=== PATIENT | male | born 1945 | race Caucasian/White ===

== ENCOUNTER 2018-03-25 06:08 | Day surgery (SDC) | payer MEDICARE, OTHER ==
[~2018-03-25] VITALS: Ht 172.7 cm; Wt 116.1 kg
[~2018-03-25 06:08] MED LIST: ACET500 PO; ALLO100 PO; ALPR.25 PO; AMIO200; AMIT50 PO; AMIT75; AMIT75 PO; AMLO10 PO; AMLO5 PO; ASPI325EC PO; ATEN25; ATEN25 PO; ATEN50; ATEN50 PO; ATOR80 PO; Aspir 8181 MG PO; BACL20 PO; CIPR500 PO; COQ1050 MG PO; CYCL10 PO; DOCU100 PO; Diovan320 MG PO; FENT75TP TOP; FURO40; GLIP2.5ER; GLIP2.5ER PO; GLIP5 PO; HYDACE10B PO; HYDACE5 PO; HYDCHL12.5; HYDR1TAB94 PO; IBUP400 PO; Isosorbide Mono60 MG PO; LAVAP17G PO; LEVFLO500 PO; MAGOXI400 PO; METF500C PO; METO10 PO; METR500 PO; Micro-K10 MEQ; NITR.6SL SL; OMEP20ER PO; OXYACE5T PO; OXYACE7.5T PO; PANT40 PO; PERCOCET 10/325 MG; PROM25 PO; RXSULTRIDS; SIMV40; SIMV80 PO; SULTRIDS PO; TRAM50 PO; TRIHYD5075; TRIHYD5075 PO; TURMERIC500 M2 PO; WARF1 PO; Zithromax250 MG PO; [UNRECOGNIZED DRUG - OTHER] PO
== END 2018-03-25 23:37 | disposition home or self-care (01) ==
LOC: ORSCMMR 06:08 → ORD 07:30 → ORSCMMR 23:37
PROVIDERS: Surgery
PROC: 0DJD8ZZ Inspection of Lower Intestinal Tract, Via Natural or Artificial Opening Endoscopic (ICD-10-PCS; principal; 2018-03-25 07:30)
DX: Z12.11 Encounter for screening for malignant neoplasm of colon (principal); Z86.010 Personal history of colon polyps; I10 Essential (primary) hypertension; E11.9 Type 2 diabetes mellitus without complications; E66.9 Obesity, unspecified; Z68.31 Body mass index [BMI] 31.0-31.9, adult; Z79.82 Long term (current) use of aspirin; Z79.84 Long term (current) use of oral hypoglycemic drugs; Z79.899 Other long term (current) drug therapy
CPT/HCPCS: 82947; J7120

== ENCOUNTER → 2018-10-03 | Outpatient (CLI) | payer MEDICARE, OTHER ==
[2018-10-03 11:59] LABS: BASOPHILS ABSOLUTE AUTO 0.03 K/mm3 (0.00-0.23); BASOPHILS PERCENT AUTO 0 % (0-2); EOSINOPHILS ABSOLUTE AUTO 0.19 K/mm3 (0.00-0.68); EOSINOPHILS PERCENT AUTO 2 % (0-6); Hematocrit 41.2 % (37.0-53.0); Hemoglobin 14.1 g/dL (13.5-17.5); IMMATURE GRAN ABSOLUTE AUTO 0.02 K/mm3 (0.00-0.10); IMMATURE GRAN PERCENT AUTO 0 % (0-1); LYMPHOCYTES ABSOLUTE AUTO 1.34 K/mm3 (0.84-5.20); LYMPHOCYTES PERCENT AUTO 14 % (21-46); MONOCYTES ABSOLUTE AUTO 0.66 K/mm3 (0.16-1.47); MONOCYTES PERCENT AUTO 7 % (4-13); Mean Corpuscular HGB 29.2 pg (26.0-34.0); Mean Corpuscular HGB Conc 34.2 g/dL (31.5-36.5); Mean Corpuscular Volume 85 fL (80-100); Mean Platelet Volume 9.7 fL (9.1-12.4); NEUTROPHILS ABSOLUTE AUTO 7.28 K/mm3 (1.96-9.15); NEUTROPHILS PERCENT AUTO 77 % (41-73); Platelet Count 165 K/mm3 (150-400); RDW Coefficient Variation 13.1 % (11.7-14.2); RDW Standard Deviation 39.8 fL (35.1-46.3); Red Blood Cell Count 4.83 M/mm3 (4.30-5.90); White Blood Cell Count 9.52 K/mm3 (4.00-11.30)
[2018-10-03 12:07] LABS: Albumin, Blood 3.9 g/dL (3.4-5.0); Albumin/Globulin Ratio 1.1 (0.8-1.8); Bilirubin, Total 1.3 mg/dL (0.1-1.0); Bun/Creatinine Ratio 19.6 (12.0-20.0); Creatinine, Blood 1.53 mg/dL (0.60-1.20); Globulin, Blood 3.5 g/dL (2.2-4.0); Potassium, Blood 3.9 mmol/L (3.5-5.5); Total Protein, Blood 7.4 g/dL (6.4-8.2)
== END | disposition home or self-care (01) ==
LOC: LAB EV 11:53 → LAB SHORT 11:53
PROVIDERS: Family Medicine
DX: K21.9 Gastro-esophageal reflux disease without esophagitis (principal)
CPT/HCPCS: 80053; 85025

== ENCOUNTER → 2018-10-12 | Outpatient (CLI) | payer MEDICARE, OTHER | END | disposition home or self-care (01) | LOC: LAB EV 21:15 | DX: R10.13 Epigastric pain (principal) | CPT/HCPCS: 87015; 87045; 87046; 87205; 87899 ==

== ENCOUNTER → 2019-08-06 | Outpatient (CLI) | payer MEDICARE, OTHER | END | disposition home or self-care (01) | LOC: LAB SHORT 16:04 → LAB EV 16:04 | DX: S91.301A Unspecified open wound, right foot, initial encounter (principal) | CPT/HCPCS: 87070; 87075; 87205 ==

== ENCOUNTER 2019-12-31 12:10 | Emergency (ER) | payer MEDICARE, OTHER ==
[~2019-12-31] VITALS: Ht 175.3 cm; Wt 111.1 kg
[2019-12-31 12:34] LABS: BASOPHILS ABSOLUTE AUTO 0.02 K/mm3 (0.00-0.23); BASOPHILS PERCENT AUTO 0 % (0-2); EOSINOPHILS ABSOLUTE AUTO 0.03 K/mm3 (0.00-0.68); EOSINOPHILS PERCENT AUTO 0 % (0-6); Hematocrit 40.5 % (37.0-53.0); Hemoglobin 13.4 g/dL (13.5-17.5); IMMATURE GRAN ABSOLUTE AUTO 0.04 K/mm3 (0.00-0.10); IMMATURE GRAN PERCENT AUTO 0 % (0-1); LYMPHOCYTES ABSOLUTE AUTO 0.71 K/mm3 (0.84-5.20); LYMPHOCYTES PERCENT AUTO 6 % (21-46); MONOCYTES ABSOLUTE AUTO 0.71 K/mm3 (0.16-1.47); MONOCYTES PERCENT AUTO 6 % (4-13); Mean Corpuscular HGB 28.9 pg (26.0-34.0); Mean Corpuscular HGB Conc 33.1 g/dL (31.5-36.5); Mean Corpuscular Volume 87 fL (80-100); Mean Platelet Volume 10.1 fL (9.1-12.4); NEUTROPHILS ABSOLUTE AUTO 10.42 K/mm3 (1.96-9.15); NEUTROPHILS PERCENT AUTO 87 % (41-73); Platelet Count 168 K/mm3 (150-400); RDW Coefficient Variation 12.7 % (11.7-14.2); RDW Standard Deviation 40.1 fL (35.1-46.3); Red Blood Cell Count 4.64 M/mm3 (4.30-5.90); White Blood Cell Count 11.93 K/mm3 (4.00-11.30)
[2019-12-31 12:52] LABS: Albumin/Globulin Ratio 0.7 (0.8-1.8); Bilirubin, Total 1.4 mg/dL (0.1-1.0); Bun/Creatinine Ratio 21.3 (12.0-20.0); Calcium, Blood 9.1 mg/dL (8.5-10.1); Creatinine, Blood 1.36 mg/dL (0.60-1.20); Globulin, Blood 4.4 g/dL (2.2-4.0); Total Protein, Blood 7.4 g/dL (6.4-8.2)
[2019-12-31 13:01] LABS: Ethanol (Alcohol), Blood, Med <3 mg/dL; Troponin I <0.015 ng/mL (0.000-0.040)
[2019-12-31 14:37] LABS: Source, Urine Clean Catch
[2019-12-31 14:46] LABS: Bilirubin, Urine Neg (Neg); Blood, Urine Neg (Neg); Glucose Qualitative, Urine Neg (Neg); Ketones, Urine 1+ (Neg); Leukocyte Esterase, Urine 1+ (Neg); Nitrite, Urine Neg (Neg); Protein, Urine 2+ (Neg); Specific Gravity, Urine 1.015 (1.003-1.022); Urobilinogen, Urine NORM (Normal)
[2019-12-31 15:03] LABS: U Amphetamine Screen Not Detected; U Barbituate Screen Not Detected; U Methamphetamine Screen Not Detected
[2019-12-31 15:04] LABS: U Benzodiazapine Screen DETECTED; U Buprenorphine Screen Not Detected; U Cannabinoids Screen Not Detected; U Cocaine Screen Not Detected; U Methadone Screen Not Detected; U Opiates Screen DETECTED; U Oxycodone Screen Not Detected; U Phencyclidine Screen Not Detected; U Propoxyphene Screen Not Detected
[2019-12-31 15:07] LABS: Appearance, Urine Clear (Clear); Color, Urine Yellow (P-Yellow)
[2019-12-31 15:09] LABS: Bacteria Mod /hpf; Mucus Light (0-Heavy); Red Blood Cells, Urine Rare /hpf (0-2); Squamous Epithelial Cells Rare /hpf (Few)
[2019-12-31 15:10] LABS: Hyaline Casts 0-2 /lpf (0-2)
[2019-12-31] MEDS ORDERED: CEPH500 PO (15:27)
== END 2019-12-31 16:44 | disposition home or self-care (01) ==
LOC: ER 12:10
PROVIDERS: Emergency Medicine
DX: R41.82 Altered mental status, unspecified (principal); T50.905A Adverse effect of unspecified drugs, medicaments and biological substances, initial encounter; E11.65 Type 2 diabetes mellitus with hyperglycemia; E86.0 Dehydration; I12.9 Hypertensive chronic kidney disease with stage 1 through stage 4 chronic kidney disease, or unspecified chronic kidney disease; E11.22 Type 2 diabetes mellitus with diabetic chronic kidney disease; N18.9 Chronic kidney disease, unspecified; E11.40 Type 2 diabetes mellitus with diabetic neuropathy, unspecified; Z88.8 Allergy status to other drugs, medicaments and biological substances; Z79.899 Other long term (current) drug therapy; Z79.82 Long term (current) use of aspirin; Z79.84 Long term (current) use of oral hypoglycemic drugs; Z87.891 Personal history of nicotine dependence
CPT/HCPCS: 36415; 70450; 71045; 80053; 81001; 84484; 85025; 87077; 87086; 87186; 93005; 93010; 96361; 96365; 99285-25; G0480; J0696; J7030

== ENCOUNTER → 2020-07-29 | Outpatient (CLI) | payer MEDICARE, OTHER ==
[~2020-07-29] MED LIST changes: +CEPH500 PO
== END | disposition home or self-care (01) ==
LOC: LAB SHORT 14:31 → PLD 14:31
DX: C44.612 Basal cell carcinoma of skin of right upper limb, including shoulder (principal)
CPT/HCPCS: 88305

== ENCOUNTER → 2020-11-11 | Outpatient (CLI) | payer MEDICARE, OTHER | LOC: LAB 08:46 → LAB SHORT 08:46 | DX: L60.2 Onychogryphosis (principal); B35.1 Tinea unguium; Z88.6 Allergy status to analgesic agent | CPT/HCPCS: 88304; 88312 ==

== ENCOUNTER → 2021-02-25 | Outpatient (CLI) | payer MEDICARE, OTHER | LOC: LAB SHORT 11:27 → LAB 11:27 | DX: L57.0 Actinic keratosis (principal); L57.8 Other skin changes due to chronic exposure to nonionizing radiation; L30.8 Other specified dermatitis; R23.4 Changes in skin texture | CPT/HCPCS: 88305; 88312 ==

== ENCOUNTER → 2021-04-08 | Outpatient (CLI) | payer MEDICARE, OTHER | LOC: LAB 12:32 → LAB SHORT 12:32 | DX: C44.612 Basal cell carcinoma of skin of right upper limb, including shoulder (principal) | CPT/HCPCS: 88305 ==

== ENCOUNTER 2022-03-12 17:28 | Inpatient (IN) | payer MEDICARE, OTHER ==
[~2022-03-12] VITALS: Ht 175.3 cm; Wt 108.0 kg
[~2022-03-12 17:28] MED LIST changes: -ATOR10 PO; -ISTALOL2.5 ML LEFTEYE; -LOSARTAN-HCTZ1 EAC5 PO
[2022-03-12] MEDS ORDERED: LOSARTAN-HCTZ1 EAC5 PO (18:13)
[2022-03-12] MEDS ORDERED: ATOR10 PO (18:14)
[2022-03-12] MEDS ORDERED: CYCL10 PO (22:59)
[2022-03-12] MEDS ORDERED: ISTALOL2.5 ML LEFTEYE (23:00)
[2022-03-12 23:14] LABS: CHOL/HDL RATIO 7.2; Cholesterol 260 mg/dL (50-200); HDL Cholesterol 36 mg/dL (>39); LDL/HDL RATIO Unable to Calculate; Low Density Lipoprotein Chol Unable to Calculate mg/dL (0-110); Triglycerides 590 mg/dL (30-160); Very Low Density Lipoprot Chol Unable to Calculate mg/dL (6-32)
--- NOTE | 2022-03-12 23:47 | NUR ---
ADMIT NOTE 77 YR OLD MALE ADMITTED TO FLOOR FROM THE ED WITH DX OF CHEST PAIN. NOTED TROP INCREASE FROM [address] DAMON NOTIFIED, SAID NOT SIGNIFICANT ENOUGH TO GO TO HIGHER LEVEL OF CARE AND HE WAS TO HAVE A STRESS TEST IN THE AM. ALERT AND OREINTED X 4. DENIED CHEST PAIN. BP ELEVATED OTHERWISE VSS. WAS GIVEN NORVASC PRIOR TO COMING TO THE FLOOR. ORIENTED TO USE OF CALL LIGHT AND CALL LIGHT IN REACH. NPO FOR TEST IN THE AM. WILL CONTINUE TO MONITOR. MED TELE BBB AND 1ST DEG HB.
--- NOTE | 2022-03-13 04:50 | NUR ---
TELETYPE INSTALLER SUMMARY WAS ADMITTED EARLIER IN THE SHIFT WITH DX CHEST PAIN AND ELEVATED TROPONIN LEVELS. HAD BEEN RESTING QUIETLY WITHOUT C/O UNTIL A FEW MINUTES AGO. VOICED PAIN IN BACK. RECEIVED TYLENOL PO, THEN SAID THE PAIN WAS RADIATING TOWARD HIS CHEST AND POINTED TO HIS LEFT PECTORAL AREA. VOICED PAIN 7.5:10. NITRO SL ADMIN. PAIN DECREASED TO 7:10. AGAIN 5 MIN LATER, NITRO SL. PAIN DECREASED TO 4:10. THIRD DOSE ADMIN AND PAIN DECREASED TO LESS THAN 3. VSS. AFFECT CHEERFUL HE WAS WATCHING TV. SEE MAR FOR DETAILS RE MEDS. WILL CONTINUE TO MONITOR. SCHEDULED FOR STRESS TEST LATER TODAY.
[2022-03-13 05:34] LABS: Albumin, Blood 3.4 g/dL (3.4-5.0); Albumin/Globulin Ratio 0.9 (0.8-1.8); Bilirubin, Total 0.7 mg/dL (0.1-1.0); Bun/Creatinine Ratio 20.4 (12.0-20.0); Calcium, Blood 9.2 mg/dL (8.5-10.1); Creatinine, Blood 1.13 mg/dL (0.60-1.20); Globulin, Blood 3.6 g/dL (2.2-4.0); Potassium, Blood 3.3 mmol/L (3.5-5.5)
[2022-03-13 07:31] LABS: Influenza A, PCR NEGATIVE (NEGATIVE); Influenza B, PCR NEGATIVE (NEGATIVE); Resp Syncytial Virus, PCR NEGATIVE (NEGATIVE); SARS-Cov-2 (COVID-19) PCR, MMC NEGATIVE (NEGATIVE)
--- NOTE | 2022-03-13 13:17 | NUR ---
Echocardiogram completed.
--- NOTE | 2022-03-13 18:24 | NUR ---
SHIFT SUMMARY NO ACUTE EVENTS. PTN A&O X4. PTN PLEASANT AND COOPERATIVE. PTN DID NOT HAVE ANY CHEST PAIN OR OTHER PAIN THIS SHIFT. PTN DID HAVE A STRESS TEST AND CARDIOLOGY CONSULT. PTN DID NEED A SMALL AMOUNT OF INSULIN COVERAGE FOR MEALS. TELE REMAINS IN PLACE. PLAN FOR STENT PLACEMENT IN MORNING.
--- NOTE | 2022-03-13 21:22 | NUR ---
NPO > MIDNIGHT FOR CORONARY [id number] IN AM. RAPID COVID-19 TEST ALREADY DONE THIS MORNING.
--- NOTE | 2022-03-14 04:00 | NUR ---
SHIFT SUMMARY PATIENT HAD NO ACUTE CHANGES. AXOX 4 AND INDEPENDENT IN ROOM. NPO FOR CORONARY ANGIOGRAM THIS MORNING. PIV REMAINS INTACT. CBG 190. ON ROOM AIR. DENIES CHEST PAIN, SOB, AND N/V. ON PHONE FIRST PART OF SHIFT TEXTING. COOPERATIVE WITH CARE. VSS/AFEBRILE. CALL LIGHT IN REACH. BED IN LOWEST POSITION. WILL CONTINUE TO MONITOR UNTIL DAY SHIFT NURSE ASSUMES CARE.
[2022-03-14 05:05] LABS: BASOPHILS ABSOLUTE AUTO 0.03 K/mm3 (0.00-0.23); BASOPHILS PERCENT AUTO 1 % (0-2); EOSINOPHILS ABSOLUTE AUTO 0.14 K/mm3 (0.00-0.68); EOSINOPHILS PERCENT AUTO 3 % (0-6); Hematocrit 41.6 % (37.0-53.0); Hemoglobin 14.1 g/dL (13.5-17.5); IMMATURE GRAN ABSOLUTE AUTO 0.01 K/mm3 (0.00-0.10); IMMATURE GRAN PERCENT AUTO 0 % (0-1); LYMPHOCYTES ABSOLUTE AUTO 1.24 K/mm3 (0.84-5.20); LYMPHOCYTES PERCENT AUTO 23 % (21-46); MONOCYTES ABSOLUTE AUTO 0.45 K/mm3 (0.16-1.47); MONOCYTES PERCENT AUTO 8 % (4-13); Mean Corpuscular HGB Conc 33.9 g/dL (31.5-36.5); Mean Corpuscular Volume 85 fL (80-100); Mean Platelet Volume 9.6 fL (9.1-12.4); NEUTROPHILS ABSOLUTE AUTO 3.54 K/mm3 (1.96-9.15); NEUTROPHILS PERCENT AUTO 65 % (41-73); Platelet Count 168 K/mm3 (150-400); RDW Coefficient Variation 12.9 % (11.7-14.2); RDW Standard Deviation 39.9 fL (35.1-46.3); Red Blood Cell Count 4.87 M/mm3 (4.30-5.90); White Blood Cell Count 5.41 K/mm3 (4.00-11.30)
[2022-03-14 05:33] LABS: Albumin, Blood 3.3 g/dL (3.4-5.0); Albumin/Globulin Ratio 0.9 (0.8-1.8); Bilirubin, Total 0.8 mg/dL (0.1-1.0); Bun/Creatinine Ratio 21.6 (12.0-20.0); Calcium, Blood 9.4 mg/dL (8.5-10.1); Creatinine, Blood 1.16 mg/dL (0.60-1.20); Globulin, Blood 3.7 g/dL (2.2-4.0); Magnesium, Blood 2.3 mg/dL (1.6-2.4); Potassium, Blood 3.8 mmol/L (3.5-5.5)
--- NOTE | 2022-03-14 11:14 | NUR ---
Transfer note Received telephone reports from tito Gimenez on medical floor this am. Recieved bedside report Aníbal cath lab tech rn. Pt to room at approx 0915, right groing site, dressing has dime size blood noted, increased to quarter size at approx 1100, held pressure for apporx 10 minutes, recharger notified. Will continue to monitor. Pt sleeping, responsing to loud verbal stimuli, alert, oriented X4. Pt anxious at times. Pt Spo2 >90% for majority of shift, occasionally drops while sleeping but quickly recovers. Tele sinus, bp elevated but stable, plans for am medications once patient is able to sit up more. Other vss. No other acute changes, will continue to monitor.
--- NOTE | 2022-03-14 18:08 | NUR ---
Shift Summary No additional bleeding noted, groin site recovered this evening. pt 1 person assist to bsc. Pt reporting left lower chest pain this afternoon, ekg completed and notified Dr Humza Dr to room, medicated per emar with positive results. Other vss. No other acute changes noted. Will continue to monitor.
[2022-03-15 04:04] LABS: BASOPHILS ABSOLUTE AUTO 0.01 K/mm3 (0.00-0.23); BASOPHILS PERCENT AUTO 0 % (0-2); EOSINOPHILS ABSOLUTE AUTO 0.13 K/mm3 (0.00-0.68); EOSINOPHILS PERCENT AUTO 2 % (0-6); Hematocrit 38.5 % (37.0-53.0); Hemoglobin 12.4 g/dL (13.5-17.5); IMMATURE GRAN ABSOLUTE AUTO 0.02 K/mm3 (0.00-0.10); IMMATURE GRAN PERCENT AUTO 0 % (0-1); LYMPHOCYTES ABSOLUTE AUTO 1.17 K/mm3 (0.84-5.20); LYMPHOCYTES PERCENT AUTO 16 % (21-46); MONOCYTES PERCENT AUTO 8 % (4-13); Mean Corpuscular HGB 28.8 pg (26.0-34.0); Mean Corpuscular HGB Conc 32.2 g/dL (31.5-36.5); Mean Platelet Volume 9.8 fL (9.1-12.4); NEUTROPHILS ABSOLUTE AUTO 5.47 K/mm3 (1.96-9.15); NEUTROPHILS PERCENT AUTO 74 % (41-73); Platelet Count 170 K/mm3 (150-400); RDW Coefficient Variation 13.2 % (11.7-14.2); RDW Standard Deviation 43.3 fL (35.1-46.3)
[2022-03-15 04:07] LABS: Mean Corpuscular Volume 90 fL (80-100)
[2022-03-15 04:30] LABS: Albumin, Blood 3.1 g/dL (3.4-5.0); Bun/Creatinine Ratio 19.5 (12.0-20.0); Calcium, Blood 8.7 mg/dL (8.5-10.1); Creatinine, Blood 1.23 mg/dL (0.60-1.20); Globulin, Blood 3.2 g/dL (2.2-4.0); Magnesium, Blood 1.8 mg/dL (1.6-2.4); Potassium, Blood 3.8 mmol/L (3.5-5.5); Total Protein, Blood 6.3 g/dL (6.4-8.2)
--- NOTE | 2022-03-15 06:11 | NUR ---
SHIFT SUMMARY ASSUMED CARE OF PT AT 1900. PT IS A/OX4. HEART SOUNDS REGULAR, LUNG SOUNDS DIMINISHED AT BASES. PT WAS 1P SBA TO BATHROOM. PT R GROIN SITE HAD SMALL AMOUNT OF DRAINAGE, TENDER WHEN TOUCHED BUT SOFT. PT HAD NO NEW COMPLAINTS DURING THE NIGHT. PT C/O BACK PAIN, MEDICATED PER EMAR.
[2022-03-15] MEDS ORDERED: CLOP75 PO (16:47)
[2022-03-15] MEDS ORDERED: METO25ER PO (16:47)
[2022-03-15] MEDS ORDERED: PANT40 PO (16:50)
--- NOTE | 2022-03-15 17:47 | NUR ---
DISCHARGE SUMMARY: PATIENT HAS BEEN PLEASANT AND UNDERSTANDING OF THE 2+ HOURS OF PATIENT TEACHINGS THROUGH THE DAY HE AND HIS RECIEVED IN REGARDS TO CURRENT ILLNESS, AND SITUATION AROUND MED MANAGEMENT. PATIENT IS ALERT AND ORIENTED ON RA, DENIES CHEST PAIN PRESSURE, INCREASED BACK PAIN WHY HE ORIGINALLY CAME IN, NO SIGN OF ACUTE DISTRESS, PATIENT DRESSED AND AWAITING FOR RIDE TO BE PICKED UP. ANNITA CUEVAS HAD COMPLETE UNDERSTANDING OF THE NEW MEDICATIONS AND SITUATION. NNO QUESTIONS OR CONCERNS FROM THIS MOTORCYCLE DELIVERY DRIVER OR THE PATIENT AT THIS TIME.
== END 2022-03-15 17:47 | disposition home or self-care (01) | DRG 281 ==
LOC: ER 17:28 → MEDS 17:29 → PCU 03-14 08:02
PROVIDERS: Internal Medicine; Internal Medicine Cardiovascular Disease; Student in an Organized Health Care Education/Training Program; ADMIT Family Medicine
PROC: 4A023N7 Measurement of Cardiac Sampling and Pressure, Left Heart, Percutaneous Approach (ICD-10-PCS; principal; 2022-03-14)
PROC: B2111ZZ Fluoroscopy of Multiple Coronary Arteries using Low Osmolar Contrast (ICD-10-PCS; 2022-03-14)
PROC: B2181ZZ Fluoroscopy of Left Internal Mammary Bypass Graft using Low Osmolar Contrast (ICD-10-PCS; 2022-03-14)
PROC: B2121ZZ Fluoroscopy of Single Coronary Artery Bypass Graft using Low Osmolar Contrast (ICD-10-PCS; 2022-03-14)
DX: I21.4 Non-ST elevation (NSTEMI) myocardial infarction (principal); I16.1 Hypertensive emergency; Z20.822 Contact with and (suspected) exposure to COVID-19; I25.10 Atherosclerotic heart disease of native coronary artery without angina pectoris; I10 Essential (primary) hypertension; E78.5 Hyperlipidemia, unspecified; E11.40 Type 2 diabetes mellitus with diabetic neuropathy, unspecified; E87.6 Hypokalemia; G89.29 Other chronic pain; I44.0 Atrioventricular block, first degree; E66.9 Obesity, unspecified; Z68.35 Body mass index [BMI] 35.0-35.9, adult; Z90.49 Acquired absence of other specified parts of digestive tract; Z98.890 Other specified postprocedural states; Z95.1 Presence of aortocoronary bypass graft; Z87.891 Personal history of nicotine dependence; Z88.6 Allergy status to analgesic agent; Z79.4 Long term (current) use of insulin; Z79.899 Other long term (current) drug therapy
CPT/HCPCS: 0241U; 36415; 71045; 74018; 78452; 80053; 80061; 82947; 83690; 83735; 83880; 84443; 84484; 85025; 86850; 86900; 86901; 93005; 93010; 93017; 93306; 93459; 96372; 96374; 99152; 99153; 99285-25; A9270; A9500; C1769; C1894; G0278; G0378; J0360; J0706; J1644; J1650; J1815; J2250; J2785; J3010; J7030; J7040; Q9967

== ENCOUNTER → 2022-03-12 | Outpatient (CLI) | payer MEDICARE, OTHER ==
[~2022-03-12] MED LIST changes: +AMITRIPTYLINE100 M2 PO; +ATOR10 PO; -GLIP2.5ER PO; +GLIP5ER PO; +ISTALOL2.5 ML LEFTEYE; +LOSARTAN-HCTZ1 EAC5 PO
[2022-03-12 16:36] LABS: BASOPHILS ABSOLUTE AUTO 0.02 K/mm3 (0.00-0.23); BASOPHILS PERCENT AUTO 0 % (0-2); EOSINOPHILS PERCENT AUTO 4 % (0-6); Hematocrit 41.3 % (37.0-53.0); Hemoglobin 13.9 g/dL (13.5-17.5); IMMATURE GRAN ABSOLUTE AUTO 0.01 K/mm3 (0.00-0.10); IMMATURE GRAN PERCENT AUTO 0 % (0-1); LYMPHOCYTES ABSOLUTE AUTO 1.07 K/mm3 (0.84-5.20); LYMPHOCYTES PERCENT AUTO 20 % (21-46); MONOCYTES ABSOLUTE AUTO 0.43 K/mm3 (0.16-1.47); MONOCYTES PERCENT AUTO 8 % (4-13); Mean Corpuscular HGB 29.1 pg (26.0-34.0); Mean Corpuscular HGB Conc 33.7 g/dL (31.5-36.5); Mean Corpuscular Volume 86 fL (80-100); Mean Platelet Volume 9.7 fL (9.1-12.4); NEUTROPHILS ABSOLUTE AUTO 3.58 K/mm3 (1.96-9.15); NEUTROPHILS PERCENT AUTO 67 % (41-73); Platelet Count 161 K/mm3 (150-400); RDW Coefficient Variation 13.1 % (11.7-14.2); RDW Standard Deviation 41.1 fL (35.1-46.3); Red Blood Cell Count 4.78 M/mm3 (4.30-5.90); White Blood Cell Count 5.31 K/mm3 (4.00-11.30)
[2022-03-12 16:46] LABS: Albumin, Blood 3.3 g/dL (3.4-5.0); Albumin/Globulin Ratio 0.9 (0.8-1.8); Bilirubin, Total 0.5 mg/dL (0.1-1.0); Bun/Creatinine Ratio 16.5 (12.0-20.0); Calcium, Blood 8.7 mg/dL (8.5-10.1); Creatinine, Blood 1.39 mg/dL (0.60-1.20); Globulin, Blood 3.7 g/dL (2.2-4.0)
== END | disposition home or self-care (01) ==
LOC: LAB SHORT 16:30
PROVIDERS: Physician Assistant
DX: R10.13 Epigastric pain (principal)
CPT/HCPCS: 80053; 83690; 84484; 85025

== ENCOUNTER → 2022-04-26 | Outpatient (CLI) | payer MEDICARE, OTHER ==
[~2022-04-26] MED LIST changes: +ATOR10 PO; +CLOP75 PO; +ISTALOL2.5 ML LEFTEYE; +LOSARTAN-HCTZ1 EAC5 PO; +METO25ER PO
[2022-04-26 12:51] LABS: BASOPHILS ABSOLUTE AUTO 0.02 K/mm3 (0.00-0.23); BASOPHILS PERCENT AUTO 0 % (0-2); EOSINOPHILS ABSOLUTE AUTO 0.03 K/mm3 (0.00-0.68); EOSINOPHILS PERCENT AUTO 0 % (0-6); Hematocrit 40.5 % (37.0-53.0); Hemoglobin 14.1 g/dL (13.5-17.5); IMMATURE GRAN ABSOLUTE AUTO 0.03 K/mm3 (0.00-0.10); IMMATURE GRAN PERCENT AUTO 0 % (0-1); LYMPHOCYTES ABSOLUTE AUTO 1.44 K/mm3 (0.84-5.20); LYMPHOCYTES PERCENT AUTO 18 % (21-46); MONOCYTES ABSOLUTE AUTO 0.52 K/mm3 (0.16-1.47); MONOCYTES PERCENT AUTO 6 % (4-13); Mean Corpuscular HGB 29.7 pg (26.0-34.0); Mean Corpuscular HGB Conc 34.8 g/dL (31.5-36.5); Mean Corpuscular Volume 85 fL (80-100); Mean Platelet Volume 9.7 fL (9.1-12.4); NEUTROPHILS ABSOLUTE AUTO 6.08 K/mm3 (1.96-9.15); NEUTROPHILS PERCENT AUTO 75 % (41-73); Platelet Count 188 K/mm3 (150-400); RDW Coefficient Variation 13.6 % (11.7-14.2); RDW Standard Deviation 42.2 fL (35.1-46.3); Red Blood Cell Count 4.75 M/mm3 (4.30-5.90); White Blood Cell Count 8.12 K/mm3 (4.00-11.30)
[2022-04-26 13:08] LABS: Albumin, Blood 3.4 g/dL (3.4-5.0); Bilirubin, Total 0.6 mg/dL (0.1-1.0); Bun/Creatinine Ratio 13.9 (12.0-20.0); Calcium, Blood 8.9 mg/dL (8.5-10.1); Creatinine, Blood 1.37 mg/dL (0.60-1.20); Globulin, Blood 3.5 g/dL (2.2-4.0); Potassium, Blood 4.1 mmol/L (3.5-5.5); Total Protein, Blood 6.9 g/dL (6.4-8.2)
== END ==
LOC: LAB SHORT 12:48
PROVIDERS: Physician Assistant
DX: R07.9 Chest pain, unspecified (principal)
CPT/HCPCS: 80053; 83880; 84484; 85025

== ENCOUNTER 2022-06-10 10:48 | Emergency (ER) | payer MEDICARE, OTHER ==
[~2022-06-10] VITALS: Ht 175.3 cm; Wt 105.7 kg
[~2022-06-10 10:48] MED LIST changes: -ATOR10 PO; +ATOR40TA PO; -GLIP5ER PO; +NITR.4SL SL; -NITR.6SL SL
[2022-06-10 11:30] LABS: BASOPHILS ABSOLUTE AUTO 0.04 K/mm3 (0.00-0.23); BASOPHILS PERCENT AUTO 0 % (0-2); EOSINOPHILS PERCENT AUTO 4 % (0-6); Hemoglobin 14.1 g/dL (13.5-17.5); IMMATURE GRAN ABSOLUTE AUTO 0.03 K/mm3 (0.00-0.10); IMMATURE GRAN PERCENT AUTO 0 % (0-1); LYMPHOCYTES ABSOLUTE AUTO 1.59 K/mm3 (0.84-5.20); LYMPHOCYTES PERCENT AUTO 17 % (21-46); MONOCYTES ABSOLUTE AUTO 0.72 K/mm3 (0.16-1.47); MONOCYTES PERCENT AUTO 8 % (4-13); Mean Corpuscular HGB 29.7 pg (26.0-34.0); Mean Corpuscular HGB Conc 34.4 g/dL (31.5-36.5); Mean Corpuscular Volume 86 fL (80-100); Mean Platelet Volume 9.5 fL (9.1-12.4); NEUTROPHILS ABSOLUTE AUTO 6.66 K/mm3 (1.96-9.15); NEUTROPHILS PERCENT AUTO 71 % (41-73); Platelet Count 193 K/mm3 (150-400); RDW Coefficient Variation 12.9 % (11.7-14.2); RDW Standard Deviation 40.2 fL (35.1-46.3); Red Blood Cell Count 4.75 M/mm3 (4.30-5.90); White Blood Cell Count 9.44 K/mm3 (4.00-11.30)
[2022-06-10 11:46] LABS: Albumin, Blood 3.1 g/dL (3.4-5.0); Albumin/Globulin Ratio 0.8 (0.8-1.8); Bun/Creatinine Ratio 18.3 (12.0-20.0); Calcium, Blood 9.2 mg/dL (8.5-10.1); Creatinine, Blood 1.31 mg/dL (0.60-1.20); Potassium, Blood 4.4 mmol/L (3.5-5.5); Total Protein, Blood 7.1 g/dL (6.4-8.2)
[2022-06-10] MEDS ORDERED: TRAM50 PO (12:42)
[2022-06-10] MEDS ORDERED: ISOSORBIDE MONO30 MG PO (12:44)
[2022-06-10] MEDS ORDERED: METOPROLOL SUCC25 MG PO (12:45)
[2022-06-10] MEDS ORDERED: LIDO700A20 TOP (15:49)
== END 2022-06-10 16:00 | disposition home or self-care (01) ==
LOC: ER 10:48
PROVIDERS: Physician Assistant
DX: M54.10 Radiculopathy, site unspecified (principal); I10 Essential (primary) hypertension; E11.40 Type 2 diabetes mellitus with diabetic neuropathy, unspecified; Z88.1 Allergy status to other antibiotic agents; Z88.8 Allergy status to other drugs, medicaments and biological substances; Z79.84 Long term (current) use of oral hypoglycemic drugs; Z87.891 Personal history of nicotine dependence
CPT/HCPCS: 36415; 71046; 80053; 83690; 83880; 84484; 85025; 85379; 93005; 93010; 96374; 96375; 99285-25; J1885; J2270; J2405

== ENCOUNTER 2022-06-23 17:05 | Observation (INO) | payer MEDICARE, OTHER ==
[~2022-06-23] VITALS: Ht 175.3 cm; Wt 106.6 kg
[~2022-06-23 17:05] MED LIST changes: -DORZOLAMIDE-TIM10 ML LEFTEYE
[2022-06-24 04:31] LABS: Hematocrit 39.7 % (37.0-53.0); Hemoglobin 13.3 g/dL (13.5-17.5); Mean Corpuscular HGB 29.4 pg (26.0-34.0); Mean Corpuscular HGB Conc 33.5 g/dL (31.5-36.5); Mean Corpuscular Volume 88 fL (80-100); Mean Platelet Volume 9.3 fL (9.1-12.4); Platelet Count 219 K/mm3 (150-400); RDW Standard Deviation 42.3 fL (35.1-46.3); Red Blood Cell Count 4.52 M/mm3 (4.30-5.90); White Blood Cell Count 8.71 K/mm3 (4.00-11.30)
[2022-06-24 04:53] LABS: Calcium, Blood 8.8 mg/dL (8.5-10.1); Creatinine, Blood 1.75 mg/dL (0.60-1.20); Potassium, Blood 3.8 mmol/L (3.5-5.5)
--- NOTE | 2022-06-24 05:04 | NUR ---
SHIFT SUMMARY PT ADMITTED FOR CHEST PAIN. AOX4. PT REPORTS MINIMAL CHEST PAIN UPON TRANSFER FROM ER. C/O INCREASED CHEST PAIN WITH EXERTION/MOVEMENT. PAIN MANAGED WITH LIDOCAINE PATCH AND FENTANYL 25MCG (X1) WITH RELIEF. VSS. PT ON ROOM AIR. AOX4. INDEPENDENT IN ROOM. DENIES DIZZINESS AND LIGHTHEADEDNESS. TOLERATING PO INTAKE DENIES NAUSEA AND VOMITING. NPO AFTER MIDNIGHT. LASIX WAS GIVEN LAST NIGHT. PT HAS IV ON R AC. SALINE LOCKED. PT DENIES NUMBNESS AND TINGLING SENSATION. NO SLURRED SPEECH AND FACIAL DROOPING NOTED. LUNGS ARE CLEAR. CALL LIGHT WITHIN REACH. WILL PROVIDE REPORT TO ONCOMING NURSE.
[2022-06-24 06:40] LABS: Cholesterol 243 mg/dL (50-200); Triglycerides 491 mg/dL (30-160)
--- NOTE | 2022-06-24 18:41 | NUR ---
SHIFT SUMMARY PT A&OX4 AND PLEASANT. PT ADMITTED FOR CP AND SOB. PT STATED CP IS WORSE WITH MOVEMENT AND DEEP BREATHS. ORDER GIVEN FOR MORPHINE AND PT STATED GOOD EFFICACY. PT HAD ECOCARDIOGRAM IN THE AM AND A 2V RIB X-RAY IN AFTERNOON. PT INDEPENDENT IN ROOM. TOLERATED DIET WELL. NO C/O OF NAUSEA OR SOB DURING THE DAY. BED IN LOWEST POSITION AND CALL LIGHT IN REACH.
[2022-06-24] MEDS ORDERED: DORZOLAMIDE-TIM10 ML LEFTEYE (19:07)
--- NOTE | 2022-06-25 04:36 | NUR ---
CALL FROM PRESS CLIPPER; PT'S TELE SHOWING HR DROPPING TO 37 AND SUSTAINING. PT SLEEPING AND DOES NOT EXHIBIT FACIAL EXPRESSIONS OF PAIN. RADIAL PULSE 48. WILL CONTINUE TO MONITOR.
--- NOTE | 2022-06-25 05:00 | NUR ---
CALL TO HOSPITALIST, DR FRIEND, PT TO STOP METOPROLOL. OK TO LOWER TELE ALARM TO 25 AND NOTIFY HIM IF PT BECOMES SYMPTOMATIC. WEB APPLICATIONS ARCHITECT NOTIFIED.
--- NOTE | 2022-06-25 05:18 | NUR ---
GROUP DIRECTOR SUMMARY: A&Ox4. PLEASANT AND MOSTLY COOPERATIVE WITH CARE, THOUGH HE DID TAKE HIS CENSUS ENUMERATOR OFF IN HIS SLEEP AT ONE POINT. MOSTLY INDEPENDENT WITHIN HIS ROOM, UTILIZING BEDSIDE URINAL. GENTLE HYDRATION AT 75mL/HR RAC WITH BRACE D/T FREQUENT DISTAL OCCLUSION. HR DROPPING TO 37bpm MULTIPLE TIMES. ON-CALL NOTIFIED AND ORDERS TO DC METOPROLOL AND NOTIFY IF PT BECOMES SYMPTOMATIC. MEDICATED x1 CHEST AND STERNAL PAIN. WILL REPORT TO ONCOMING RN.
--- NOTE | 2022-06-25 06:51 | NUR ---
PT TO RADIOLOGY VIA BED TRANSPORT BY TECHNICAL EDUCATION TEACHER FOR RIB XRs AT 0651.
[2022-06-25] MEDS ORDERED: PANT40 PO (15:40)
[2022-06-25] MEDS ORDERED: ATOR40TA PO (15:40)
[2022-06-25] MEDS ORDERED: CLOP75 PO (15:44)
--- NOTE | 2022-06-25 16:07 | NUR ---
1600/DC HOME WRITTEN & VERBAL DC INSTRUCTIONS GIVEN TO PT, GOOD UNDERSTANDING VERBALIZED BY PT. ALL QUESTIONS ANSWERED. PIV DC'D WITH CATH TIP INTACT, NO REDNESS OR SWELLING NOTED. NEW SCRIPTS WERE FAXED TO PT'S PREFERRED PHARM, [facility]. PT HOME WITH ALL PERSONAL BELONGINGS VIA W/C TO PRIVATE VEHICLE & FRIEND TO DRIVE HIM HOME.
== END 2022-06-25 16:00 | disposition home or self-care (01) ==
LOC: ER 17:05 → MEDS 17:06
PROVIDERS: Family Medicine; ADMIT Student in an Organized Health Care Education/Training Program
DX: M94.0 Chondrocostal junction syndrome [Tietze] (principal); N17.9 Acute kidney failure, unspecified; J96.01 Acute respiratory failure with hypoxia; R77.8 Other specified abnormalities of plasma proteins; I25.10 Atherosclerotic heart disease of native coronary artery without angina pectoris; Z95.1 Presence of aortocoronary bypass graft; E11.22 Type 2 diabetes mellitus with diabetic chronic kidney disease; I12.9 Hypertensive chronic kidney disease with stage 1 through stage 4 chronic kidney disease, or unspecified chronic kidney disease; E11.42 Type 2 diabetes mellitus with diabetic polyneuropathy; E78.5 Hyperlipidemia, unspecified; Z87.891 Personal history of nicotine dependence; Z88.8 Allergy status to other drugs, medicaments and biological substances; R10.9 Unspecified abdominal pain; N18.2 Chronic kidney disease, stage 2 (mild)
CPT/HCPCS: 36415; 71046; 71100; 80048; 82465; 82947; 83880; 84443; 84478; 85027; 93005; 93010; 93308; 93321; 96375; 96376; A9270; G0378; J1940; J2270; J2405; J3010; J7030

== ENCOUNTER → 2022-06-23 | Outpatient (CLI) | payer MEDICARE, OTHER ==
[~2022-06-23] MED LIST changes: +DORZOLAMIDE-TIM10 ML LEFTEYE; +ISOSORBIDE MONO30 MG PO; +LIDO700A20 TOP; +METOPROLOL SUCC25 MG PO
[2022-06-23 16:13] LABS: BASOPHILS ABSOLUTE AUTO 0.05 K/mm3 (0.00-0.23); BASOPHILS PERCENT AUTO 1 % (0-2); EOSINOPHILS ABSOLUTE AUTO 0.21 K/mm3 (0.00-0.68); EOSINOPHILS PERCENT AUTO 3 % (0-6); Hematocrit 42.1 % (37.0-53.0); Hemoglobin 14.5 g/dL (13.5-17.5); IMMATURE GRAN ABSOLUTE AUTO 0.03 K/mm3 (0.00-0.10); IMMATURE GRAN PERCENT AUTO 0 % (0-1); LYMPHOCYTES ABSOLUTE AUTO 1.51 K/mm3 (0.84-5.20); LYMPHOCYTES PERCENT AUTO 19 % (21-46); MONOCYTES ABSOLUTE AUTO 0.58 K/mm3 (0.16-1.47); MONOCYTES PERCENT AUTO 7 % (4-13); Mean Corpuscular HGB 29.8 pg (26.0-34.0); Mean Corpuscular HGB Conc 34.4 g/dL (31.5-36.5); Mean Corpuscular Volume 87 fL (80-100); Mean Platelet Volume 9.3 fL (9.1-12.4); NEUTROPHILS ABSOLUTE AUTO 5.47 K/mm3 (1.96-9.15); NEUTROPHILS PERCENT AUTO 70 % (41-73); Platelet Count 262 K/mm3 (150-400); RDW Standard Deviation 40.8 fL (35.1-46.3); Red Blood Cell Count 4.86 M/mm3 (4.30-5.90); White Blood Cell Count 7.85 K/mm3 (4.00-11.30)
[2022-06-23 16:26] LABS: Albumin, Blood 3.5 g/dL (3.4-5.0); Albumin/Globulin Ratio 0.9 (0.8-1.8); Bilirubin, Total 0.9 mg/dL (0.1-1.0); Bun/Creatinine Ratio 12.7 (12.0-20.0); Calcium, Blood 8.9 mg/dL (8.5-10.1); Creatinine, Blood 1.65 mg/dL (0.60-1.20); Globulin, Blood 3.9 g/dL (2.2-4.0); Potassium, Blood 4.3 mmol/L (3.5-5.5); Total Protein, Blood 7.4 g/dL (6.4-8.2)
== END | disposition home or self-care (01) ==
LOC: LAB SHORT 16:09 → LAB 16:09
PROVIDERS: Family Medicine
DX: I25.10 Atherosclerotic heart disease of native coronary artery without angina pectoris (principal)
CPT/HCPCS: 80053; 84484; 85025

== ENCOUNTER 2023-03-28 17:39 | Inpatient (IN) | payer MEDICARE, BC ==
[~2023-03-28] VITALS: Ht 175.3 cm; Wt 103.6 kg
[~2023-03-28 17:39] MED LIST changes: +DORZOLAMIDE-TIM10 ML LEFTEYE
[2023-03-28 18:17] LABS: BASOPHILS ABSOLUTE AUTO 0.02 K/mm3 (0.00-0.23); BASOPHILS PERCENT AUTO 0 % (0-2); EOSINOPHILS ABSOLUTE AUTO 0.02 K/mm3 (0.00-0.68); EOSINOPHILS PERCENT AUTO 0 % (0-6); Hematocrit 37.6 % (37.0-53.0); Hemoglobin 12.7 g/dL (13.5-17.5); IMMATURE GRAN ABSOLUTE AUTO 0.02 K/mm3 (0.00-0.10); IMMATURE GRAN PERCENT AUTO 0 % (0-1); LYMPHOCYTES ABSOLUTE AUTO 0.68 K/mm3 (0.84-5.20); LYMPHOCYTES PERCENT AUTO 8 % (21-46); MONOCYTES ABSOLUTE AUTO 0.46 K/mm3 (0.16-1.47); MONOCYTES PERCENT AUTO 5 % (4-13); Mean Corpuscular HGB 28.9 pg (26.0-34.0); Mean Corpuscular HGB Conc 33.8 g/dL (31.5-36.5); Mean Corpuscular Volume 86 fL (80-100); Mean Platelet Volume 10.5 fL (9.1-12.4); NEUTROPHILS ABSOLUTE AUTO 7.54 K/mm3 (1.96-9.15); NEUTROPHILS PERCENT AUTO 86 % (41-73); Platelet Count 174 K/mm3 (150-400); RDW Coefficient Variation 12.8 % (11.7-14.2); RDW Standard Deviation 39.8 fL (35.1-46.3); White Blood Cell Count 8.74 K/mm3 (4.00-11.30)
[2023-03-28 18:36] LABS: Albumin, Blood 3.1 g/dL (3.4-5.0); Albumin/Globulin Ratio 0.9 (0.8-1.8); Bilirubin, Total 0.8 mg/dL (0.1-1.0); Bun/Creatinine Ratio 12.3 (12.0-20.0); Creatinine, Blood 1.87 mg/dL (0.60-1.20); Globulin, Blood 3.4 g/dL (2.2-4.0); Potassium, Blood 4.1 mmol/L (3.5-5.5); Total Protein, Blood 6.5 g/dL (6.4-8.2)
[2023-03-28 19:44] LABS: U Amphetamine Screen Not Detected; U Barbituate Screen Not Detected; U Benzodiazapine Screen Not Detected; U Buprenorphine Screen Not Detected; U Cannabinoids Screen DETECTED; U Cocaine Screen Not Detected; U Methadone Screen Not Detected; U Methamphetamine Screen Not Detected; U Opiates Screen Not Detected; U Oxycodone Screen Not Detected; U Phencyclidine Screen Not Detected; U Propoxyphene Screen Not Detected
[2023-03-28 20:23] LABS: Source, Urine Straight Cath
[2023-03-28 20:27] LABS: Bilirubin, Urine Neg (Neg); Blood, Urine 1+ (Neg); Glucose Qualitative, Urine 3+ (Neg); Ketones, Urine Neg (Neg); Leukocyte Esterase, Urine Neg (Neg); Nitrite, Urine Neg (Neg); Protein, Urine 4+ (Neg); Urobilinogen, Urine NORM (Normal)
[2023-03-28 20:32] LABS: Appearance, Urine Clear (Clear); Color, Urine Yellow (P-Yellow)
[2023-03-28 20:35] LABS: Amorphous Light (0-Heavy); Bacteria Rare /hpf; Red Blood Cells, Urine 0-2 /hpf (0-2); Squamous Epithelial Cells Few /hpf (Few); White Blood Cells, Urine Not Seen /hpf (0-5)
[2023-03-28 20:36] LABS: Hyaline Casts 25-50 /lpf (0-2)
[2023-03-28 20:46] LABS: Magnesium, Blood 1.7 mg/dL (1.6-2.4)
[2023-03-28 20:48] LABS: Thyroid Stimulating Hormone 1.45 uIU/mL (0.360-4.800)
[2023-03-28] MEDS ORDERED: ASPI325 PO (21:45)
[2023-03-28] MEDS ORDERED: Norco 5-325 Ta1 EACH PO (21:46)
--- NOTE | 2023-03-28 22:00 | NUR ---
ADMISSION NOTE PT ARRIVED FROM ER VIA STRETCHER TO ICU BED 5. PT IS ALERT AND ORIENTED X3 W/NARCAN GTT INFUSING AT TIME OF ARRIVAL. PT HAD MULTIPLE MEDICATIONS THAT WERE TAKEN TO PHARMACY AND BELONGINGS SENT W/SECURITY. PT DOES SMOKE MARIJUANA. EDUCATED PT ON INGNITION SOURCES AND RISK OF HARM TO SELF AND OTHERS. PT HAD NO IGNITION SOURCES WITH HIS PROPERTY, I WAS GIVEN PERMISSION TO SEARCH THEM BY PT. PT IS CONTINENT OF URINE, VOIDING IN THE URINAL. HE IS HYPERTENSIVE, SR ON THE WREATH INSPECTOR W/1ST DEGREE AV BLOCK. PT IS FORGETFUL AT TIMES.
[2023-03-28 22:13] VITALS: BP 180/84
[2023-03-28 22:30] VITALS: BP 195/103
[2023-03-28 22:45] VITALS: BP 197/102
[2023-03-28 23:30] VITALS: BP 192/95
[2023-03-29] VITALS (16 sets, daily range): BP systolic 138–201; BP diastolic 68–126
[2023-03-29 03:33] LABS: Hematocrit 37.6 % (37.0-53.0); Hemoglobin 12.6 g/dL (13.5-17.5); Mean Corpuscular HGB 28.5 pg (26.0-34.0); Mean Corpuscular HGB Conc 33.5 g/dL (31.5-36.5); Mean Corpuscular Volume 85 fL (80-100); Mean Platelet Volume 10.4 fL (9.1-12.4); Platelet Count 152 K/mm3 (150-400); RDW Standard Deviation 39.7 fL (35.1-46.3); Red Blood Cell Count 4.42 M/mm3 (4.30-5.90); White Blood Cell Count 7.55 K/mm3 (4.00-11.30)
[2023-03-29 03:54] LABS: Bun/Creatinine Ratio 14.8 (12.0-20.0); Calcium, Blood 8.6 mg/dL (8.5-10.1); Creatinine, Blood 1.42 mg/dL (0.60-1.20); Potassium, Blood 3.7 mmol/L (3.5-5.5)
--- NOTE | 2023-03-29 07:30 | NUR ---
CARE ASSUMPTION DURING BEDSIDE SHIFT REPORT W ISIDORO SCHROEDER THE PT IS LYING IN BED AWAKE ON RM AIR. THE PT IS ALERT BUT SLIGHTLY CONFUSED ABOUT HIS CURRENT SITUATION THAT HAS HIM HOSPITALIZED. THE PT IS HYPERTENSIVE W SBP IN THE 170'S. MONITOR SHOWING SR AT 60 BPM. PT REPORTING PAIN IN R SHOULDER WHICH HE REPORTS FALLING ON AT HOME. PT IS CALM AT THIS TIME AND COMMUNICATING APPROPRIATELY W STAFF.
--- NOTE | 2023-03-29 17:01 | NUR ---
SHIFT SUMMARY- PT TRANSFERED FROM ICU THIS AFTERNOON. HE WAS CONCERNED ABOUT THE WEARABOUTS OF HIS WALLET. CALLED SECURITY THEY HAVE IT LOCKED UP. HE SLEPT FOR MUCH OF THIS SHIFT. HIS BED IS IN THE LOW POSITION AND CALL LIGHT IS WITHIN REACH.
[2023-03-30] VITALS (7 sets, daily range): BP systolic 116–186; BP diastolic 60–90
[2023-03-30 05:32] LABS: BASOPHILS ABSOLUTE AUTO 0.03 K/mm3 (0.00-0.23); BASOPHILS PERCENT AUTO 1 % (0-2); EOSINOPHILS PERCENT AUTO 3 % (0-6); Hematocrit 35.9 % (37.0-53.0); Hemoglobin 12.2 g/dL (13.5-17.5); IMMATURE GRAN ABSOLUTE AUTO 0.03 K/mm3 (0.00-0.10); IMMATURE GRAN PERCENT AUTO 1 % (0-1); LYMPHOCYTES ABSOLUTE AUTO 1.16 K/mm3 (0.84-5.20); LYMPHOCYTES PERCENT AUTO 19 % (21-46); MONOCYTES ABSOLUTE AUTO 0.44 K/mm3 (0.16-1.47); MONOCYTES PERCENT AUTO 7 % (4-13); Mean Corpuscular HGB 28.6 pg (26.0-34.0); Mean Corpuscular Volume 84 fL (80-100); Mean Platelet Volume 10.2 fL (9.1-12.4); NEUTROPHILS PERCENT AUTO 70 % (41-73); Platelet Count 155 K/mm3 (150-400); RDW Coefficient Variation 12.8 % (11.7-14.2); RDW Standard Deviation 39.3 fL (35.1-46.3); Red Blood Cell Count 4.26 M/mm3 (4.30-5.90); White Blood Cell Count 6.26 K/mm3 (4.00-11.30)
--- NOTE | 2023-03-30 05:53 | NUR ---
Shift Summary Pt AOx2-3 with some confusion especially upon waking up. Pt routinely removes heart monitor when waking up and needing to void. He is 1 assist with the urinal at the bedside or to the bathroom with FWW. Pt on tele running SR around 60. He was hypertensive with systolic of 186. Called hospitalist who ordered hydralazine IV PRN systolic>160. Consult request faxed to Dr. Shrestha per MD order. Pt is pleasant and cooperative with care and slept well t/o the night except for frequent voids.
[2023-03-30 06:07] LABS: Bun/Creatinine Ratio 17.5 (12.0-20.0); Calcium, Blood 8.9 mg/dL (8.5-10.1); Creatinine, Blood 1.54 mg/dL (0.60-1.20); Potassium, Blood 3.7 mmol/L (3.5-5.5)
--- NOTE | 2023-03-30 08:35 | NUR ---
MEDICATION UPDATE. METOPROLOL 12.5MG GIVEN THIS AM.DR ANTHONY DISCONTINUED ORDER MEDICATION WAS BEGIN GIVEN. DR NOTIIFIED MED STILL GIVEN. ORDERS TO WAIT 2 HOURS THIS AM BEFORE GIVING NEW MEDS COZAAR AND HYDROCHLOROTHIAZIDE. DR ALSO NOTIFIED PATIENT NORMALLY TAKES MEDICATION FOR PAIN, STATES HE THINKS IT STARTS WITH L, ONLY MED ON CHART IS MUSCLE RELAXER CALLED FLEXERIL.
[2023-03-30 08:53] LABS: BASOPHILS ABSOLUTE AUTO 0.02 K/mm3 (0.00-0.23); BASOPHILS PERCENT AUTO 0 % (0-2); EOSINOPHILS PERCENT AUTO 3 % (0-6); Hematocrit 38.3 % (37.0-53.0); Hemoglobin 13.2 g/dL (13.5-17.5); IMMATURE GRAN ABSOLUTE AUTO 0.02 K/mm3 (0.00-0.10); IMMATURE GRAN PERCENT AUTO 0 % (0-1); LYMPHOCYTES ABSOLUTE AUTO 1.21 K/mm3 (0.84-5.20); LYMPHOCYTES PERCENT AUTO 17 % (21-46); MONOCYTES PERCENT AUTO 6 % (4-13); Mean Corpuscular HGB 28.7 pg (26.0-34.0); Mean Corpuscular HGB Conc 34.5 g/dL (31.5-36.5); Mean Corpuscular Volume 83 fL (80-100); Mean Platelet Volume 10.2 fL (9.1-12.4); NEUTROPHILS ABSOLUTE AUTO 5.32 K/mm3 (1.96-9.15); NEUTROPHILS PERCENT AUTO 74 % (41-73); Platelet Count 172 K/mm3 (150-400); RDW Coefficient Variation 12.9 % (11.7-14.2); RDW Standard Deviation 38.8 fL (35.1-46.3); White Blood Cell Count 7.17 K/mm3 (4.00-11.30)
[2023-03-30 09:22] LABS: Albumin, Blood 3.1 g/dL (3.4-5.0); Albumin/Globulin Ratio 0.8 (0.8-1.8); Bilirubin, Total 0.9 mg/dL (0.1-1.0); Bun/Creatinine Ratio 16.9 (12.0-20.0); Calcium, Blood 8.9 mg/dL (8.5-10.1); Creatinine, Blood 1.48 mg/dL (0.60-1.20); Globulin, Blood 3.8 g/dL (2.2-4.0); Thyroid Stimulating Hormone 2.61 uIU/mL (0.360-4.800); Total Protein, Blood 6.9 g/dL (6.4-8.2)
--- NOTE | 2023-03-30 16:47 | NUR ---
SHIFT SUMMARY PATIENT WITH NO ACUTE EVENTS TODAY, CONTINUES TO BE INTERMITTENTLY FORGETFUL. PATIENT UP FOR MEALS, RESTING IN RECLINER OR BED MOST OF DAY. BED ALARM ON, PATIENT DOES NOT CALL FOR NEEDS. WILL CONTINUE TO MONITOR.
--- NOTE | 2023-03-30 20:08 | NUR ---
NOTIFIED BY TELE PT RUNNING SINUS JIM WITH 1ST DEGREEE HEART BLOCK @ 57 BPM. WILL CONTINUE TO MONITOR FOR CHANGE IN PT CONDITION.
--- NOTE | 2023-03-31 00:51 | NUR ---
PT EDUCATED ON [facility] FIRE SAFETY IGNITION/EXPLOSIVE SOURCES NON SMOKING POLICY AND VERBALIZED UNDERSTANDING.
--- NOTE | 2023-03-31 03:03 | NUR ---
SHIFT SUMMARY NOC PT A/O X 3-4. CONFUSED AT TIMES, PLEASANT AND COOPERATIVE WITH CARE. NO ACUTE CHANGES TO REPORT. PT ON TELE RUNNING SINUS RHYTHM @ 72 BPM. PT TOOK SHOWER WITH SET UP. PT CBG 260 WITH NO COVERAGE INDICATED PER SS. 10 UNITS OF SCHEDULED LONG ACTING INSULIN GIVEN. PT HAD C/O OF NOT BEING ABLE TO SLEEP, ORDER FOR PO 5MG MELATONIN HS PRN OBTAINED. PT AWAITING GUARDIANSHIP FOR FURTHER DISCHARGE PLANNING. PT IS CURRENTLY RESTING WITH BED ALARM ON, BED IN LOWEST POSITION, AND CALL LIGHT WITHIN REACH.
[2023-03-31 05:01] VITALS: BP 176/73
[2023-03-31 07:25] VITALS: BP 171/76
[2023-03-31 09:17] VITALS: BP 146/87
[2023-03-31 15:10] VITALS: BP 160/71
--- NOTE | 2023-03-31 18:53 | NUR ---
SHIFT SUMMARY PATIENT WITH NO ACUTE EVENTS TODAY. UP WALKING CID WITH WALKER AND GAIT BELT 1 PA. AOX3 NOT ABLE TO STATE DAY OF WEEK OR DATE BUT ABLE TO STATE MONTH. HISTOY IS INTERMITTENTLY CORRECT. C/O BACK ACHE AT END OF SHIFT REQUESTING PAIN MED, OFFERED TYLENOL, PATIENT REFUSED, OFFERED WALK TO ASSIST IN DECREASING PAIN. PATIENT AGREABLE AND WALKED AGAIN WITH COMPUTERIZED TABLE CUTTER. BED ALARM ON, CALL LIGHT IN REACH.
[2023-03-31 19:41] VITALS: BP 163/83
[2023-03-31 22:13] VITALS: BP 152/85
[2023-04-01] VITALS (7 sets, daily range): BP systolic 103–168; BP diastolic 59–87
--- NOTE | 2023-04-01 05:44 | NUR ---
PATIENT SLEPT ON AND OFF THROUGH THE NIGHT, ALERT AND ORIENTED X3, SOME CONFUSION AT TIMES, BUT VERY COOPERATIVE WITH CARE. BED ALRM USED PATIENT DOES NOT CALL TO MAKE NEEDS KNOWN AND OVER ESTIMATES ABILITY. 1X ASSIST WITH FWW AND GAILT BELT USED WHEN OOB. HTN TREATED WITH PRN'S X2 THIS SHIFT. GOOD U/O. NO OTHER ISSUES TO REPORTS.
[2023-04-01 07:09] LABS: Bun/Creatinine Ratio 16.9 (12.0-20.0); Calcium, Blood 8.8 mg/dL (8.5-10.1); Creatinine, Blood 1.36 mg/dL (0.60-1.20); Magnesium, Blood 1.8 mg/dL (1.6-2.4); Potassium, Blood 3.5 mmol/L (3.5-5.5)
--- NOTE | 2023-04-01 07:16 | NUR ---
RECEIVED A CALL FROM TELE ALERTING ME TO PATIENT HAVING AN 18 BEAT RUN OF VTACK. PATIENT WAS FOUND TO BE CLINCHING HIS CHEST, C/O 10/10 BACK PAIN, L SHOULDER PAIN, AND CHEST PAIN ON INSPIRATION. VSS. SECOND CALL FROM TELE CAME IN MOMENTS LATER SHOWING 2ND DEGREE TYPE ONE AND LOOSING QRS. EKG OBTAINED WITH MINIMAL BUT SOME CHANGES SINCE PRIOR EKG. CALL MADE TO HOSPITALIST, NITRO AND MORPHINE ORDERED AND ADMINISTERED WITH GOOD RESULTS AFTER SECOND NITRO DOSE. WAITING LAB RESULTS. HOSPITALIST UPDATED WELL. PATIENT IS CURRENTLY RESTING COMFORTABLY. DAY SHIFT INFORMED. WILL CONT TO MONITOR.
--- NOTE | 2023-04-01 07:29 | NUR ---
DR. ANTHONY NOTIFIED ABOUT TROP LEVEL. 418.
--- NOTE | 2023-04-01 10:20 | NUR ---
ASSUMED CARE OF PT. REPORT RECEIVED FROM CASS SCHROEDER. PT UP IN CHAIR, GETTING READY TO TAKE SHOWER. PT REPORTS CONCERNS OF CONTINUED BACK PAIN . WILL ADDRESS WHEN PATIENT OUT OF SHOWER.
[2023-04-01] MEDS ORDERED: ASPI81CH PO (13:12)
[2023-04-01] MEDS ORDERED: HYDCHL25 PO (13:13)
[2023-04-01] MEDS ORDERED: INSULANI SC (13:13)
[2023-04-01] MEDS ORDERED: LOSA50 PO (13:13)
[2023-04-01] MEDS ORDERED: Acetaminophen650 M1 PO (13:13)
[2023-04-01] MEDS ORDERED: MELATONIN5 M2 PO (13:14)
[2023-04-01] MEDS ORDERED: VITAMIN D5000 UNIT PO (13:14)
[2023-04-01 13:55] LABS: Influenza A, PCR NEGATIVE (NEGATIVE); Influenza B, PCR NEGATIVE (NEGATIVE); Resp Syncytial Virus, PCR NEGATIVE (NEGATIVE); SARS-Cov-2 (COVID-19) PCR, MMC NEGATIVE (NEGATIVE)
--- NOTE | 2023-04-01 14:30 | NUR ---
DISCHARGE SUMMARY: PT DISCHARGED TO [facility] VIA MEDICAL TRANSPORT. PT BELONGINGS PACKED UP AND SENT WITH PT. YELLOW SLIP FOR WALLET IN SECURITY VAULT GIVEN TO EX LADARIUS TO OBTAIN. PT AGREED TO ALLOW LADARIUS TO TAKE BARRETT AND HIS MEDCIATIONS HOME. MEDICATIONS OBTAINED FROM PHARMACY VAULT AND HANDED OVER TO LADARIUS. REPORT GIVEN TO WALDEMAR AT [facility].
== END 2023-04-01 14:33 | DRG 280 ==
LOC: ER 17:39 → MEDS 17:40 → ER 20:37 → ICUE 20:37 → MEDS 03-29 10:58 → ICUE 03-29 10:58 → MEDS 03-29 15:25
PROVIDERS: Emergency Medicine; Family Medicine; Internal Medicine; Nurse Practitioner Acute Care; ADMIT Student in an Organized Health Care Education/Training Program
DX: R55 Syncope and collapse (principal); G92.8 Other toxic encephalopathy; I21.A1 Myocardial infarction type 2; N17.9 Acute kidney failure, unspecified; N25.81 Secondary hyperparathyroidism of renal origin; I47.20 Ventricular tachycardia, unspecified; N18.30 Chronic kidney disease, stage 3 unspecified; E78.5 Hyperlipidemia, unspecified; I25.10 Atherosclerotic heart disease of native coronary artery without angina pectoris; K21.9 Gastro-esophageal reflux disease without esophagitis; G89.29 Other chronic pain; E11.22 Type 2 diabetes mellitus with diabetic chronic kidney disease; I12.9 Hypertensive chronic kidney disease with stage 1 through stage 4 chronic kidney disease, or unspecified chronic kidney disease; F03.90 Unspecified dementia, unspecified severity, without behavioral disturbance, psychotic disturbance, mood disturbance, and anxiety; R07.89 Other chest pain; I44.1 Atrioventricular block, second degree; Z20.822 Contact with and (suspected) exposure to COVID-19; E11.42 Type 2 diabetes mellitus with diabetic polyneuropathy; E11.65 Type 2 diabetes mellitus with hyperglycemia; M10.9 Gout, unspecified; E86.0 Dehydration; F12.10 Cannabis abuse, uncomplicated; F10.90 Alcohol use, unspecified, uncomplicated; Z90.49 Acquired absence of other specified parts of digestive tract; Z95.1 Presence of aortocoronary bypass graft; Z98.890 Other specified postprocedural states; Z87.891 Personal history of nicotine dependence; Z88.8 Allergy status to other drugs, medicaments and biological substances
CPT/HCPCS: 0241U; 36415; 51701; 70450; 71045; 80048; 80053; 81001; 82306; 82550; 82947; 83735; 84443; 84484; 85025; 85027; 93005; 93010; 93306; 96365-59; 96366-59; 96372-59; 97110; 97116; 97129; 97162; 97166; 97530; 97535; 99285-25; A9270; C9113; G0480; J0360; J1644; J1815; J2270; J2310; J3411; J7030; J7050

== ENCOUNTER → 2023-07-14 | Outpatient (CLI) | payer MEDICARE, OTHER ==
[~2023-07-14] MED LIST changes: +ASPI325 PO; +ASPI81CH PO; +Acetaminophen650 M1 PO; +DULO30 PO; +HYDCHL25 PO; +INSULANI SC; +LABE100 PO; +LOSA50 PO; +MELATONIN5 M2 PO; +NOVOLOG FL100 UNIT/3 SQ; +Norco 5-325 Ta1 EACH PO; +OXYC5 PO; +VITAMIN D5000 UNIT PO
== END | disposition home or self-care (01) ==
LOC: LAB 14:18 → LAB SHORT 14:18
DX: L08.0 Pyoderma (principal)
CPT/HCPCS: 87070; 87205

== ENCOUNTER 2023-08-14 05:15 | Emergency (ER) | payer MEDICARE, OTHER ==
[~2023-08-14] VITALS: Ht 175.3 cm; Wt 103.0 kg
[2023-08-14 09:41] VITALS: BP 183/96
== END 2023-08-14 09:43 | disposition home or self-care (01) ==
LOC: ER 05:15
DX: S39.012A Strain of muscle, fascia and tendon of lower back, initial encounter (principal); W18.30XA Fall on same level, unspecified, initial encounter; Z88.8 Allergy status to other drugs, medicaments and biological substances; Z79.899 Other long term (current) drug therapy; Z79.84 Long term (current) use of oral hypoglycemic drugs; Z79.02 Long term (current) use of antithrombotics/antiplatelets; Z79.82 Long term (current) use of aspirin; Z79.4 Long term (current) use of insulin; Z87.891 Personal history of nicotine dependence
CPT/HCPCS: 72100; 99284-25; A9270

== ENCOUNTER 2023-10-02 08:42 | Emergency (ER) | payer OTHER ==
[~2023-10-02] VITALS: Ht 177.8 cm; Wt 99.8 kg
[2023-10-02 09:32] LABS: BASOPHILS ABSOLUTE AUTO 0.02 K/mm3 (0.00-0.23); BASOPHILS PERCENT AUTO 0 % (0-2); EOSINOPHILS ABSOLUTE AUTO 0.29 K/mm3 (0.00-0.68); EOSINOPHILS PERCENT AUTO 4 % (0-6); Hemoglobin 13.3 g/dL (13.5-17.5); IMMATURE GRAN ABSOLUTE AUTO 0.02 K/mm3 (0.00-0.10); IMMATURE GRAN PERCENT AUTO 0 % (0-1); LYMPHOCYTES ABSOLUTE AUTO 1.26 K/mm3 (0.84-5.20); LYMPHOCYTES PERCENT AUTO 17 % (21-46); MONOCYTES ABSOLUTE AUTO 0.56 K/mm3 (0.16-1.47); MONOCYTES PERCENT AUTO 7 % (4-13); Mean Corpuscular HGB 26.8 pg (26.0-34.0); Mean Corpuscular HGB Conc 32.4 g/dL (31.5-36.5); Mean Corpuscular Volume 83 fL (80-100); Mean Platelet Volume 9.9 fL (9.1-12.4); NEUTROPHILS ABSOLUTE AUTO 5.44 K/mm3 (1.96-9.15); NEUTROPHILS PERCENT AUTO 72 % (41-73); Platelet Count 190 K/mm3 (150-400); RDW Coefficient Variation 13.4 % (11.7-14.2); RDW Standard Deviation 39.7 fL (35.1-46.3); Red Blood Cell Count 4.96 M/mm3 (4.30-5.90); White Blood Cell Count 7.59 K/mm3 (4.00-11.30)
[2023-10-02 09:49] LABS: Albumin, Blood 3.2 g/dL (3.4-5.0); Albumin/Globulin Ratio 0.8 (0.8-1.8); Bun/Creatinine Ratio 16.4 (12.0-20.0); Calcium, Blood 9.1 mg/dL (8.5-10.1); Creatinine, Blood 1.59 mg/dL (0.60-1.20); Globulin, Blood 3.8 g/dL (2.2-4.0); Potassium, Blood 4.4 mmol/L (3.5-5.5)
[2023-10-02 12:11] VITALS: BP 180/83
== END 2023-10-02 12:20 | disposition home or self-care (01) ==
LOC: ER 08:42
PROVIDERS: Emergency Medicine
DX: S01.81XA Laceration without foreign body of other part of head, initial encounter (principal); W01.198A Fall on same level from slipping, tripping and stumbling with subsequent striking against other object, initial encounter; Z88.8 Allergy status to other drugs, medicaments and biological substances; Z79.899 Other long term (current) drug therapy; Z79.84 Long term (current) use of oral hypoglycemic drugs; Z79.82 Long term (current) use of aspirin; Z79.4 Long term (current) use of insulin; I10 Essential (primary) hypertension; E11.40 Type 2 diabetes mellitus with diabetic neuropathy, unspecified; I25.10 Atherosclerotic heart disease of native coronary artery without angina pectoris; I25.2 Old myocardial infarction; Z87.891 Personal history of nicotine dependence
CPT/HCPCS: 12002; 70450; 72125; 73030; 73120; 80053; 85025; 93005; 93010; 96374; 96375; 99284-25; J1170; J2270; J2405

== ENCOUNTER 2023-10-08 05:19 | Emergency (ER) | payer OTHER ==
[~2023-10-08] VITALS: Ht 175.3 cm; Wt 101.6 kg
[2023-10-08] MEDS ORDERED: FentaNYL Citrate 50 MCG/ML 2 ML Injection IV ONE ×2 (06:15→07:50)
[2023-10-08 06:36] LABS: BASOPHILS ABSOLUTE AUTO 0.02 K/mm3 (0.00-0.23); BASOPHILS PERCENT AUTO 0 % (0-2); EOSINOPHILS PERCENT AUTO 3 % (0-6); Hematocrit 40.1 % (37.0-53.0); Hemoglobin 13.1 g/dL (13.5-17.5); IMMATURE GRAN ABSOLUTE AUTO 0.01 K/mm3 (0.00-0.10); IMMATURE GRAN PERCENT AUTO 0 % (0-1); LYMPHOCYTES ABSOLUTE AUTO 1.12 K/mm3 (0.84-5.20); LYMPHOCYTES PERCENT AUTO 17 % (21-46); MONOCYTES ABSOLUTE AUTO 0.47 K/mm3 (0.16-1.47); MONOCYTES PERCENT AUTO 7 % (4-13); Mean Corpuscular HGB 26.7 pg (26.0-34.0); Mean Corpuscular HGB Conc 32.7 g/dL (31.5-36.5); Mean Corpuscular Volume 82 fL (80-100); Mean Platelet Volume 9.7 fL (9.1-12.4); NEUTROPHILS ABSOLUTE AUTO 4.91 K/mm3 (1.96-9.15); NEUTROPHILS PERCENT AUTO 73 % (41-73); Platelet Count 170 K/mm3 (150-400); RDW Coefficient Variation 13.4 % (11.7-14.2); RDW Standard Deviation 39.3 fL (35.1-46.3); White Blood Cell Count 6.73 K/mm3 (4.00-11.30)
[2023-10-08] MEDS ORDERED: HydrALAZINE HCl 20 MG / ML 1ML Vial IV ONE ×2 (06:40→07:50)
[2023-10-08] MEDS ORDERED: levETIRAcetam 1,000 MG in NS 100 ML IV ONE (06:50)
[2023-10-08 07:00] LABS: Source, Urine Clean Catch
[2023-10-08 07:02] LABS: Appearance, Urine Clear (Clear); Bilirubin, Urine Neg (Neg); Blood, Urine Neg (Neg); Glucose Qualitative, Urine 4+ (Neg); Ketones, Urine Neg (Neg); Leukocyte Esterase, Urine Neg (Neg); Nitrite, Urine Neg (Neg); Protein, Urine 3+ (Neg); Urobilinogen, Urine NORM (Normal)
[2023-10-08 07:08] LABS: Color, Urine Pale Yellow (P-Yellow)
[2023-10-08 07:10] LABS: Bacteria Rare /hpf; Red Blood Cells, Urine Not Seen /hpf (0-2); Squamous Epithelial Cells Not Seen /hpf (Few); White Blood Cells, Urine Not Seen /hpf (0-5)
[2023-10-08 07:18] LABS: Albumin, Blood 3.2 g/dL (3.4-5.0); Albumin/Globulin Ratio 0.8 (0.8-1.8); Bilirubin, Total 1.3 mg/dL (0.1-1.0); Bun/Creatinine Ratio 16.9 (12.0-20.0); Calcium, Blood 9.3 mg/dL (8.5-10.1); Creatinine, Blood 1.54 mg/dL (0.60-1.20); Globulin, Blood 3.9 g/dL (2.2-4.0); Potassium, Blood 4.3 mmol/L (3.5-5.5); Total Protein, Blood 7.1 g/dL (6.4-8.2)
[2023-10-08 07:39] LABS: Prothrombin Time Results 10.5 Sec (9.7-11.5)
[2023-10-08] MEDS ORDERED: NiCARdipine HCL 25 MG in NS 250 ML IV SCH (07:50)
[2023-10-08 08:45] VITALS: BP 127/64
== END 2023-10-08 10:03 | disposition short-term general hospital (02) ==
LOC: ER 05:19
PROVIDERS: Emergency Medicine
DX: S06.5X0A Traumatic subdural hemorrhage without loss of consciousness, initial encounter (principal); M54.2 Cervicalgia; I10 Essential (primary) hypertension; M54.6 Pain in thoracic spine; S01.81XA Laceration without foreign body of other part of head, initial encounter; W18.30XA Fall on same level, unspecified, initial encounter; E11.40 Type 2 diabetes mellitus with diabetic neuropathy, unspecified; I25.10 Atherosclerotic heart disease of native coronary artery without angina pectoris; I25.2 Old myocardial infarction; Z87.891 Personal history of nicotine dependence
CPT/HCPCS: 70450; 71045; 71260; 72125; 74177; 80053; 81001; 84484; 85025; 85610; 85730; 93005; 93010; 96365-59; 96367; 96375; 96376; 99291-25; J0360; J1953; J3010; J7050; Q9967